=== PATIENT | female | born 1960 ===

== ENCOUNTER → 2025-02-27 13:59 | Outpatient (REF) | payer MEDICARE, OTHER, SELFPAY | LOC: HWRAD 13:59 | PROVIDERS: ATTENDING PHYSICIAN Physician Assistant; FAMILY PHYSICIAN Family Medicine | DX: E04.1 Nontoxic single thyroid nodule (principal) | CPT/HCPCS: 76536 ==

== ENCOUNTER → 2025-03-29 08:29 | Outpatient (REF) | payer MEDICARE, OTHER, SELFPAY ==
[2025-03-29 08:52] VITALS: BP 186/78; BP_SYST 70
== END ==
LOC: RADI 08:29
PROVIDERS: ATTENDING PHYSICIAN Physician Assistant; FAMILY PHYSICIAN Family Medicine
DX: E04.1 Nontoxic single thyroid nodule (principal)
CPT/HCPCS: 10005; 88173